=== PATIENT | male | born 1930 | race Caucasian/White ===

== ENCOUNTER 2017-12-04 16:47 | Inpatient (IN) | payer MEDICARE ==
--- NOTE | 2017-12-04 17:33 | RAD ---
RADIOGRAPH LEFT FOOT THREE VIEWS: HISTORY: An 87-year-old male with erythema of the second toe. Rule out osteomyelitis. COMPARISON: None. FINDINGS: There is no periostitis, permeative lesion, osteolytic lesion, osteoblastic lesion, or fracture invol ving the second proximal, middle, or third phalanges. There is moderate DJD of the first MTP without hallux valgus. There is pes planus. Atherosclerotic calcification of the posterior tibial and the dorsalis pedis arteries. Mild to moderate DJD at the joints of the mid foot. There is a broad-based exostosis protruding from the medial aspect of the head of the second middle phalanx. IMPRESSION: 1. No plain radiographic evidence of osteomyelitis. 2. 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 3. Pes planus. 4. Atherosclerotic disease. POS: SUMAN
[2017-12-04 17:34] LABS: #Basophils 0.1 thou/uL (0.0-0.2); #Eosinphils 0.1 thou/uL (0.0-0.7); #Lymphocytes 1.4 thou/uL (1.20-3.40); #Monocytes 0.8 thou/uL (0.11-0.59); #Neutrophils 6.8 thou/uL (1.40-6.50); %Basophils 1.6 % (0.0-1.0); %Eosinophils 0.9 % (0.0-10.0); %Lymphocytes 14.8 % (21.0-51.0); %Monocytes 8.5 % (0.0-10.0); %Neutrophils 74.3 % (42.0-75.0); Hemoglobin 14.9 g/dL (14.0-18.0); Mean Corpuscular Hemoglobin 31.6 pg (27.0-31.0); Mean Corpuscular Volume 87.7 fL (78.0-98.0); Mean Platelet Volume 6.3 fL (7.4-10.4); Platelet Count 246 thou/uL (130-400); RBC Distribution Width 11.4 % (11.5-14.5); Red Blood Cell (RBC) Count 4.74 mill/uL (4.70-6.10); White Blood Cell (WBC) Count 9.1 thou/uL (4.8-10.8)
[2017-12-04 17:49] LABS: ALT (SGPT) 13 U/L (8-55); AST (SGOT) 17 U/L (5-34); Albumin 3.8 g/dL (3.4-4.8); Alkaline Phosphatase 71 U/L (40-150); Anion Gap 14 mmol/L (10-20); BUN (Urea Nitrogen) 21 mg/dL (8.4-25.7); Bilirubin, Total 0.3 mg/dL (0.2-1.2); Calc. Creatinine Clearance 0 mL/min (70-130); Calcium 9.4 mg/dL (7.8-10.44); Carbon Dioxide 27 mmol/L (23-31); Chloride 98 mmol/L (98-107); Estimated GFR-MDRD 34; Globulin 3.3 g/dL (2.4-3.5); Glucose 136 mg/dL (83-110); Potassium 4.6 mmol/L (3.5-5.1); Protein, Total 7.1 g/dL (5.8-8.1); Sodium 134 mmol/L (136-145)
[2017-12-04] MEDS ORDERED: Sodium Chloride 0.9% 100 ML ONE (18:26)
[2017-12-04] MEDS ORDERED: cefTRIAXone\\ROCEPHIN 2 GM VIAL ONE (18:26)
[2017-12-04] MEDS ORDERED: Ondansetron HCl/PF 4 MG/2 ML Vial IVP PRN (20:10)
[2017-12-04] MEDS ORDERED: Acetaminophen 325 MG TAB PO PRN (20:10)
[2017-12-04] MEDS ORDERED: Dextrose 50% Abboject 50 ML SYRINGE SLOW IVP PRN (20:29)
[2017-12-04] MEDS ORDERED: HumaLOG 300 UNITS/3 ML VIAL SC PRN (20:29)
[2017-12-04] MEDS ORDERED: Dextrose 5% in Water 1,000 ML IV PRN (20:29)
[2017-12-04] MEDS ORDERED: VANCOMYCIN IVPB PRN (20:43)
[2017-12-04] MEDS ORDERED: Vancomycin HCl 1 GM in Premix Bag 1 BAG IVPB SCH (21:00)
[2017-12-04] MEDS ORDERED: Vancomycin HCl 750 MG in Sodium Chloride 0.9% 250 ML 250 ML IVPB SCH (21:00)
[2017-12-04] MEDS: Sodium Chloride 0.9% 1,000 ML IV SCH (21:00)
[2017-12-04] MEDS: Heparin 5,000 UNITS/ML VIAL SC SCH (21:20)
--- NOTE | 2017-12-05 01:31 | HP ---
PRIMARY CARE PHYSICIAN: Leroy Lindo M.D. CODE STATUS: FULL CODE. TIME OF EVALUATION: 8:00 p.m. CHIEF COMPLAINT: Second left toe pain. HISTORY OF PRESENT ILLNESS: This is an 87 years old male patient with past medical history of Alzhei chase's, diabetes, diabetic neuropathy, came to the hospital after having severe second toe pain and hi s reported he had been taking antibiotics and also getting wound care for this wound and the sec ond toe, they have been unable to get it to heal. The patient has completed p.o. antibiotic cycle wi th no improvement. Today, he was complaining of severe pain at home and lesion is also painful durin g the examination, might have more . REVIEW OF SYSTEMS: Constitutional: No fever or chills, generalized weakness. Respiratory: No coug h, sputum production or shortness of breath. Cardiovascular: No chest pain or palpitations. Gastro intestinal: No nausea, no vomiting, diarrhea or abdominal pain. 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 Genitourinary: No burning with urination. Extremities: Left second toe pain wit h nonhealing wound. All other systems were reviewed and negative except for the findings mentioned a sabina. PAST MEDICAL HISTORY: As mentioned in the HPI. PAST SURGICAL HISTORY: No reported significant surgical history. PSYCHIATRIC HISTORY: History of Alzheimer's. SOCIAL HISTORY: No drugs. No alcohol. No smoking. Lives with . FAMILY HISTORY: Reviewed and noncontributory to the current presentation. KNOWN ALLERGIES: PENICILLIN. REPORTED MEDICATIONS: Reviewed and updated. PHYSICAL EXAMINATION: VITAL SIGNS: On presentation, blood pressure 141/68 with a heart rate of 81, respiratory rate was 22 , temperature 98.2, pain was 0/10, oxygen saturation 94% on room air. GENERAL APPEARANCE: The patient is alert and oriented, not in any acute distress. HEENT: Eyes: Normal conjunctiva. Moist oral mucosa. Anicteric. NECK: No JVD. RESPIRATORY: Bilateral air entry. No rales, no wheezing. Symmetric expansion. CARDIOVASCULAR: Normal rate, regular rhythm. No murmurs, no gallop, no edema. ABDOMEN: Soft, normal bowel sounds. MUSCULOSKELETAL: Baseline range of motion and strength. No tenderness except for second left toe nunez s a healing ulcer with redness extending to the upper part of the foot. SKIN: Warm and intact. No pallor, no rash, no redness, chronic atrophic changes appropriate for age . Positive findings were reported in musculoskeletal. Peripheral pulses are present. Capillary ref ill seems to be intact. NEUROLOGIC: Baseline sensory. No evidence of any new focal weakness. Baseline speech. The patient has underlying dementia. Cranial nerves seem to be intact. PSYCHIATRIC: The patient is in good mood, no anxiety, oriented, suboptimal judgement. X-ray of the foot was reviewed, there is no plain radiographic evidence of osteomyelitis. Moderate o steoarthrosis of the first metatarsophalangeal joint atherosclerotic disease. LABORATORY DATA: Labs were reviewed. The patient has white count of 9.1, hemoglobin 14.9, MCV 87, p latelet count 246. Chemistry: Sodium 134, potassium 4.6, chloride 98, carbon dioxide 27, anion gap 14, BUN 31, creatinine 1.89, in previous admission in July of this year was 1.14. As per whole dayan rd review, GFR 34, glucose 136. Lactic acid was normal. C-reactive protein 1.62 and LFTs were orlin l. ASSESSMENT AND PLAN: The patient will be placed in the hospital with following medical problems: 1. Left second toe cellulitis. The patient has a nonhealing wound, has been going on for weeks, rec eiving wound care and Bactrim p.o. as an outpatient, did not work, well controlled. We will consult Wound Care. Per the patient on IV antibiotics, we will monitor cultures, and adjust the treatment as needed. X-ray not showing signs of osteomyelitis. 2. Uncontrolled diabetes with hyperglycemia. Placed the patient on sliding scale for optimal contro l. 3. Underlying dementia, we will monitor the patient. We will give supportive care. 4. Acute kidney injury, creatinine is elevated more than 0.3 mg per deciliter from previous admissio ns in July, we will hydrate gently, we will monitor kidney function and adjust the treatment as need ed. 5. Deep venous thrombosis prophylaxis.
[2017-12-05 04:48] LABS: #Eosinphils 0.2 thou/uL (0.0-0.7); #Lymphocytes 1.4 thou/uL (1.20-3.40); #Monocytes 0.9 thou/uL (0.11-0.59); #Neutrophils 6.6 thou/uL (1.40-6.50); %Basophils 0.3 % (0.0-1.0); %Eosinophils 2.2 % (0.0-10.0); %Lymphocytes 14.9 % (21.0-51.0); %Monocytes 9.9 % (0.0-10.0); %Neutrophils 72.8 % (42.0-75.0); Hemoglobin 13.4 g/dL (14.0-18.0); Mean Corpuscular HGB CONC 34.2 g/dL (32.0-36.0); Mean Corpuscular Volume 96.5 fL (78.0-98.0); Mean Platelet Volume 6.2 fL (7.4-10.4); Platelet Count 230 thou/uL (130-400); RBC Distribution Width 12.2 % (11.5-14.5); Red Blood Cell (RBC) Count 4.07 mill/uL (4.70-6.10); White Blood Cell (WBC) Count 9.1 thou/uL (4.8-10.8)
[2017-12-05 04:51] LABS: Potassium 4.4 mmol/L (3.5-5.1); Sodium 133 mmol/L (136-145)
[2017-12-05 04:52] LABS: Anion Gap 15 mmol/L (10-20); BUN (Urea Nitrogen) 19 mg/dL (8.4-25.7); Calc. Creatinine Clearance 44 mL/min (70-130); Calcium 8.8 mg/dL (7.8-10.44); Carbon Dioxide 20 mmol/L (23-31); Chloride 102 mmol/L (98-107); Estimated GFR-MDRD 49; Glucose 97 mg/dL (83-110)
[2017-12-05] MEDS: Heparin 5,000 UNITS/ML VIAL SC SCH ×3 (08:53→20:15)
[2017-12-05] MEDS ORDERED: Prevnar 13-Val Conj/PF 0.5 ML SYRINGE IM ONE (09:00)
[2017-12-05] MEDS: Vancomycin HCl 1.25 GM in Sodium Chloride 0.9% 250 ML 250 ML IVPB SCH (10:54)
[2017-12-05] MEDS: cefTRIAXone\\ROCEPHIN 1 GM in Sodium Chloride 0.9% 100 ML IVPB SCH (17:40)
--- NOTE | 2017-12-05 18:01 | PRG ---
DATE OF SERVICE: 12/05/2017 SUBJECTIVE: The patient reports he is feeling better, has less pain. I talked to wound care nurse krzysztof calhoun felt the patient was still very tender in his toe as he was attempting to dress it. He has no oth er complaints either. OBJECTIVE: VITAL SIGNS: Temperature 97.3, pulse 64, respirations 20, O2 sat 91%-100% on room air, BP 128/59. GENERAL APPEARANCE: Age appropriate male in no distress. He is awake, alert, conversant. CARDIOVASCULAR: Heart regular rate and rhythm without murmurs. LUNGS: Clear. ABDOMEN: Soft, nontender. EXTREMITIES: The left second toe has an eschar at the medial proximal aspect with some generalized e rythema. No drainage. IMPRESSION AND PLAN: 1. Cellulitis of the left second toe. This has been somewhat chronic; however, the patient had sudd en increase of pain in this toe. Subsequently, he presented to the hospital. He had pain management and x-ray of the foot which did not reveal evidence of osteomyelitis. He was converted from his ora l Bactrim to IV antibiotics. We will go ahead and obtain an MRI to definitively rule out osteomyelit is. 2. Diabetes mellitus. Continue with sliding scale. Blood sugars have been 110-141. 3. Dementia, stable. Patient is conversant. 4. Acute kidney injury. Creatinine is down from 1.89-1.39 which is still slightly above his baselin e, but much improved. His fluids will be discontinued at this point.
[2017-12-05] MEDS: Sodium Chloride 0.9% 1,000 ML IV SCH (18:05)
[2017-12-05] MEDS: Donepezil HCl 10 MG TAB PO SCH (20:15)
[2017-12-05] MEDS: Tamsulosin HCl 0.4 MG CAP PO SCH (20:15)
[2017-12-06] MEDS: Furosemide 40 MG TAB PO SCH (08:49)
[2017-12-06] MEDS: Heparin 5,000 UNITS/ML VIAL SC SCH ×3 (08:49→20:16)
[2017-12-06] MEDS: Aspirin 81 mg Enteric Coated Tablet PO SCH (08:49)
[2017-12-06] MEDS: Spironolactone 25 MG TAB PO SCH (08:50)
[2017-12-06] MEDS: metFORMIN XR 500 MG TAB PO SCH (08:50)
--- NOTE | 2017-12-06 10:13 | MRI ---
LEFT FOREFOOT MRI WITHOUT IV CONTRAST: HISTORY: An 87-year-old male with an open wound of the left second toe for several weeks with clinical concern for osteomyelitis. FINDINGS: There is some abnormal STIR and T2 hyperintensity in the middle phalanx of the second toe with some v larisa subtle T1 hypointensity. This appearance is consistent with at least significant nonspecific ost eitis and could possibly represent very early osteomyelitis. No evidence for associated significant soft tissue fluid collection or abscess. There is motion artifact on numerous sequences, markedly de grading image quality and lowering the sensitivity of this study. Arthrosis changes of the tarsometa tarsal joints. IMPRESSION: 1. Altered signal within the middle phalanx of the second toe, evidence for at least significant non specific osteitis and possibly very early or mild osteomyelitis, without evidence for a drainable abs cess or other significant acute process. 2. Degenerative and osteoarthrosis changes. POS: SUMAN
--- NOTE | 2017-12-06 11:11 | PRG ---
DATE OF SERVICE: 12/06/2017 SUBJECTIVE: The patient feels fine, has no specific complaints today. PHYSICAL EXAMINATION: VITAL SIGNS: Temperature 98.3, pulse 71, respirations 16, O2 sat 96% on room air, BP 104/57. GENERAL APPEARANCE: Age appropriate male in no distress. MUSCULOSKELETAL: Left second toe continues to have some erythema, although it actually does look a b it better presently. IMAGING DATA: MRI of the second toe shows some evidence of osteomyelitis in the middle phalanx which could be either osteitis or mild osteomyelitis, but no evidence of abscess. IMPRESSION AND PLAN: Left second toe infection with chronic ulcer and now MRI evidence of at least o steitis and likely osteomyelitis. Discussed with the patient and his . They would prefer to holger id surgery except as a last resort. PLAN: 1. We will consult ID to determine best medical regimen. Once that is done, we will likely need to get a PICC line in place and establish home health. 2. Diabetes mellitus, stable. Blood sugars are well controlled. 3. Mild chronic dementia, stable. The patient is pretty minimal to go with whatever plan we chose. 4. Acute kidney injury, resolved.
[2017-12-06] MEDS: Furosemide 20 MG TAB PO SCH (11:21)
[2017-12-06] MEDS: Vancomycin HCl 1.25 GM in Sodium Chloride 0.9% 250 ML 250 ML IVPB SCH (11:25)
[2017-12-06] MEDS: cefTRIAXone\\ROCEPHIN 1 GM in Sodium Chloride 0.9% 100 ML IVPB SCH (18:22)
[2017-12-06] MEDS: Donepezil HCl 10 MG TAB PO SCH (20:16)
[2017-12-06] MEDS: Tamsulosin HCl 0.4 MG CAP PO SCH (20:16)
--- NOTE | 2017-12-07 00:53 | CON ---
DATE OF CONSULTATION: 12/06/2017 REASON FOR CONSULTATION: Left foot ulcer with osteomyelitis. HISTORY OF PRESENT ILLNESS: An 87-year-old with history of dementia, type 2 diabetes, neuropathy, peripheral vascular disease, who developed second toe ulcer with marked pain. The patient has taken oral antimicrobial therapy without improvement. He was admitted because of worsening pain. No headaches, visual symptoms, sore throat, odynophagia, dysphagia, no cough or sputum production or chest pain, no abdominal pain, diarrhea, symptoms. No other joint symptoms. PAST MEDICAL HISTORY: Dementia, type 2 diabetes, neuropathy, peripheral vascular disease. SOCIAL HISTORY: Never smoker. . FAMILY HISTORY: Noncontributory. ALLERGIES: PENICILLIN. CURRENT MEDICATIONS: Aspirin, Ecotrin, ceftriaxone, donepezil, glucagon, insulin, vancomycin. PHYSICAL EXAMINATION: VITAL SIGNS: Temperature normal. Blood pressure 115/58, pulse 78, respirations 18, O2 sat 96%. SKIN: Shows around 0.5 cm ulcer medial aspect second toe proximal phalanx skin. Ulcer has a dark scab covering the base pretty much 100% of the base. There is some erythema around the margin. No bone is exposed. No lymphadenopathy. HEENT: Ocular movements are conjugate. Oral cavity not remarkable. NECK: Supple. LUNGS: Symmetric clear breath sounds. HEART: S1, S2 with a soft aortic murmur. Regular rate. ABDOMEN: Soft, not distended or tender. No ascites. No bladder distention. EXTREMITIES: No other joint inflammatory activity. I could not feel any dorsalis pedis or posterior tibialis. Popliteals are 2+ right and left side. Cap refill somewhat delayed. Patient is able to move extremities with no focal weakness. NEUROLOGIC: He knows he is in the hospital, knows his , but could not tell me the date. Has poor recollection of the sequence of events. LABORATORY DATA: Showed a white cell count of 9.1, hemoglobin 14, platelets 246. Sodium 134, creatinine 1.89 and 1.39. Liver profile normal. Albumin 3.8. Two sets of blood cultures, no growth at 48 hours. Foot x-ray with no evidence of osteolysis lower extremity MRI with altered signal in the middle phalanx of the second toe, evidence of early or mild osteomyelitis. ASSESSMENT: Type 2 diabetes, peripheral vascular disease and chronic ulcer medial aspect of the second toe left foot, now with evidence of radiological findings suggestive of osteomyelitis in the setting of peripheral vascular disease. DISCUSSION: Patient will need vascular study, I believe that the antimicrobial treatment would be unlikely to lead to resolution of the process. I would advise amputation if the vascular study is adequate for the surgical procedure. If the vascular study is abnormal, then we will have to consider revascularization. I think long-term antimicrobial therapy would not be effective and the patient himself is not interested in that solution. RADHA
[2017-12-07] MEDS: Furosemide 40 MG TAB PO SCH (08:59)
[2017-12-07] MEDS: Aspirin 81 mg Enteric Coated Tablet PO SCH (09:00)
[2017-12-07] MEDS: Heparin 5,000 UNITS/ML VIAL SC SCH ×3 (09:00→20:54)
[2017-12-07] MEDS: Spironolactone 25 MG TAB PO SCH (09:00)
--- NOTE | 2017-12-07 09:28 | PDOC.PN ---
- Subjective Encounter Start Date: 12/07/17 Encounter Start Time: 09:26 No complaints. Still has some pain with the dressing change. - Objective Resuscitation Status: Resuscitation Status DNR:Do Not Resuscitate Vital Signs & Weight: Vital Signs (12 hours) Temp Pulse Resp BP Pulse Ox 12/07/17 08:55 97.6 F 84 20 105/58 L 96 Weight Admit Weight 174 lb 9.6 oz Weight 168 lb 4.8 oz I&O: 12/06/17 12/07/17 12/08/17 06:59 06:59 06:59 Intake Total 2083 1200 Output Total 650 200 Balance 1433 1000 Result Diagrams: 12/05/17 03:19 12/05/17 03:19 Additional Labs: Accuchecks 12/07/17 12/06/17 12/06/17 05:42 19:46 16:49 POC Glucose 136 H 166 H 145 H 12/06/17 11:34 POC Glucose 138 H Phys Exam - Physical Examination Constitutional: NAD Respiratory: no wheezing, no rales, no rhonchi Cardiovascular: RRR, no significant murmur, no rub Gastrointestinal: soft, non-tender, no distention, positive bowel sounds LLE with cellulitic changes of second toe with chronic wound at proximal, medial aspect. PT/DP pulses not palpable. Psychiatric: normal affect Dx/Plan (1) Osteomyelitis of toe of left foot Code(s): M86.9 - OSTEOMYELITIS, UNSPECIFIED Status: Acute Comment: Appreciate ID consult. Abx not a good option. Vascular studies ordered. Will consult surg. (2) Diabetes mellitus Code(s): E11.9 - TYPE 2 DIABETES MELLITUS WITHOUT COMPLICATIONS Status: Acute Comment: Well controlled. (3) Dementia Code(s): F03.90 - UNSPECIFIED DEMENTIA WITHOUT BEHAVIORAL DISTURBANCE Status: Acute Comment: Stable (4) Acute on chronic renal insufficiency Code(s): N28.9 - DISORDER OF KIDNEY AND URETER, UNSPECIFIED; N18.9 - CHRONIC KIDNEY DISEASE, UNSPECIFIED Status: Acute Comment: Creatinine much improved. Recheck. - Plan * As above.
[2017-12-07 10:25] LABS: Anion Gap 15 mmol/L (10-20); BUN (Urea Nitrogen) 17 mg/dL (8.4-25.7); Calc. Creatinine Clearance 38 mL/min (70-130); Calcium 9.2 mg/dL (7.8-10.44); Carbon Dioxide 26 mmol/L (23-31); Chloride 98 mmol/L (98-107); Estimated GFR-MDRD 43; Glucose 197 mg/dL (83-110); Potassium 4.1 mmol/L (3.5-5.1); Sodium 135 mmol/L (136-145); Vancomycin, Trough 13.2 ug/mL
[2017-12-07] MEDS: metFORMIN XR 500 MG TAB PO SCH (11:36)
[2017-12-07] MEDS: Vancomycin HCl 1.5 GM in Sodium Chloride 0.9% 250 ML 300 ML IVPB SCH (11:37)
[2017-12-07] MEDS: Furosemide 20 MG TAB PO SCH (11:40)
[2017-12-07 14:10] VITALS: BMI 24.8
--- NOTE | 2017-12-07 14:34 | ULT ---
ARTERIAL DUPLEX SONOGRAM LEFT LOWER EXTREMITY: History: Vascular disease. Chronic ulceration. FINDINGS: Good color and spectral doppler flow. Triphasic waveform within the common femoral and superficial fe moral artery. Biphasic wave flow within the deep femoral and popliteal artery. Monophasic flow within the anterior tibial, posterior tibial and dorsalis pedis arteries. No abnormally elevated peak systo lic velocities. IMPRESSION: 1. Good arterial flow within the left lower extremity. Dampened pulsatility distally suggests small v essel disease. POS: SUMAN
--- NOTE | 2017-12-07 17:04 | HP ---
HISTORY OF PRESENT ILLNESS: An 87-year-old male, admitted, lives at home. Ambulatory unassisted, we ars mostly just socks during the day, rarely puts on a shoe. He has had problems with the left secon d toe for several months, treated with antibiotics intermittently and wound care without healing. He is admitted to this hospitalization and plain x-rays and MRI are equivocal for osteomyelitis of the mid phalanx, left second toe. Dr. Christian has seen him. He has ulceration on the medial aspect of the left second toe at the level of the mid phalanx. This appears to be superficial and tendons were no t exposed. He has palpable femoral, popliteal, dorsalis pedis pulse. Vascular studies have been obt ained, results pending. Discussion with the is of the opinion that the patient has exhausted lo maria conservative care and they wish to proceed with amputation of left second toe. We will plan that through the proximal phalanx and I think that we can close that wound. Risk of nonhealing future in fection had been discussed and they wish to proceed with amputation. ALLERGIES: PENICILLIN. TOBACCO: None for more than 25 years. ALCOHOL: None. MEDICATIONS: Spironolactone, Protonix, furosemide, aspirin, Flomax, donepezil, metformin, Namenda. PAST MEDICAL HISTORY: Diabetes, dementia, remote history of tobacco abuse. PAST SURGICAL HISTORY: None significant. REVIEW OF SYSTEMS: Not possible. FAMILY HISTORY: Noncontributory. 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 PHYSICAL EXAMINATION: VITAL SIGNS: 5 feet 9 inches, 168 pounds, 24 BMI, 97.6, 74, 122/59. LUNGS: Clear to auscultation. CARDIAC: Regular rate and rhythm without murmur or gallop. ABDOMEN: Soft, nontender. EXTREMITIES: The patient's legs are thin. He has palpable femoral, popliteal, dorsalis pedis pulse, left. He has chronic venous stasis changes. He has an ulceration on his left second toe medially, punctate mid phalanx. There is some mild redness and chronic inflammatory changes, but no active inf ection and it appears to be superficial. ASSESSMENT AND PLAN: 1. Wound left second toe. Amputation to the proximal phalanxes discussed above. Risk of nonhealing infection, reoperation, more proximal amputation discussed and they agreed. 2. Dementia. 3. Diabetes mellitus.
[2017-12-07] MEDS: cefTRIAXone\\ROCEPHIN 1 GM in Sodium Chloride 0.9% 100 ML IVPB SCH (17:23)
[2017-12-07] MEDS: Vancomycin HCl 1.25 GM in Sodium Chloride 0.9% 250 ML 250 ML IVPB SCH (17:27)
[2017-12-07] MEDS: Lactated Ringer's 1,000 ML IV SCH (18:44)
[2017-12-07] MEDS: Tamsulosin HCl 0.4 MG CAP PO SCH (20:39)
[2017-12-07] MEDS: Donepezil HCl 10 MG TAB PO SCH (20:40)
[2017-12-08] MEDS: Lactated Ringer's 1,000 ML IV SCH (04:35)
--- NOTE | 2017-12-08 07:34 | EKG ---
Test Reason : Blood Pressure : / mmHG Vent. Rate : 073 BPM Atrial Rate : 073 BPM P-R Int : 218 ms QRS Dur : 088 ms QT Int : 402 ms P-R-T Axes : 027 -19 031 degrees QTc Int : 442 ms Sinus rhythm with 1st degree A-V block Otherwise normal ECG When compared with ECG of 24-AUG-2011 07:32, TN interval has increased Confirmed by DR. Leila FRIEND ([id number]) on 12/08/2017 7:34:11 AM Referred By: ROGE Confirmed By:DR. Leila FRIEND
[2017-12-08] MEDS: Aspirin 81 mg Enteric Coated Tablet PO SCH (09:05)
[2017-12-08] MEDS: Furosemide 40 MG TAB PO SCH (09:06)
[2017-12-08] MEDS: Heparin 5,000 UNITS/ML VIAL SC SCH ×2 (09:06→15:47)
[2017-12-08] MEDS: Spironolactone 25 MG TAB PO SCH (09:07)
[2017-12-08] MEDS ORDERED: Acetaminophen 500 MG TAB PO PRN (11:33)
[2017-12-08] MEDS ORDERED: traMADol HCl 50 MG TAB PO PRN (11:33)
[2017-12-08] MEDS ORDERED: Bacitracin Zinc Ointment 30 gm TUBE ONE (11:33)
[2017-12-08] MEDS ORDERED: Fentanyl 100 MCG/2 ML VIAL ONE (11:38)
[2017-12-08] MEDS: Furosemide 20 MG TAB PO SCH (12:00)
[2017-12-08] MEDS ORDERED: Lidocaine 2% 10 ML INJ ONE (12:15)
[2017-12-08] MEDS ORDERED: Bupivacaine HCl 0.5%/Epinephrine 1:200,000/PF 30 ml Vial ONE (12:15)
[2017-12-08] MEDS ORDERED: Ondansetron HCl/PF 4 MG/2 ML Vial IVP PRN (12:46)
[2017-12-08] MEDS ORDERED: Promethazine HCl 25 MG/ML VIAL IM PRN (12:46)
[2017-12-08] MEDS ORDERED: Promethazine HCl 25 MG/ML VIAL SLOW IVP PRN (12:46)
[2017-12-08] MEDS: Vancomycin HCl 1.5 GM in Sodium Chloride 0.9% 250 ML 300 ML IVPB SCH (13:08)
[2017-12-08] MEDS ORDERED: Ciprofloxacin 500 MG TAB PO SCH ×2 (13:15→20:00)
[2017-12-08] MEDS ORDERED: Sulfameth/Trimethoprim DS 800-160mg TAB PO SCH ×2 (13:15→21:00)
[2017-12-08 16:10] VITALS: BP 128/62; TEMP 97.7
--- NOTE | 2017-12-08 16:55 | OP ---
DATE OF PROCEDURE: 12/08/2017 PREOPERATIVE DIAGNOSES: Diabetic ulceration of left second toe with intact blood supply, palpable pe norma pulses, dementia, diabetes. POSTOPERATIVE DIAGNOSES: Diabetic ulceration of left second toe with intact blood supply, palpable p edal pulses, dementia, diabetes. PROCEDURE: Amputation of left second toe through the proximal phalanx with primary closure. Good bl ood supply noted. SURGEON: Dr. Melvin Alexander ANESTHESIA: TIVA, local digital block 0.5% Marcaine with epinephrine, 30 mL, mixed with 2% Xylocaine , 10 mL, 5 mL mixture used. PROCEDURE IN DETAIL: Patient is taken to the operating room where under intravenous sedation, left l ower extremity was prepared with ChloraPrep, draped in routine fashion. Amputation of left second to e created performed by making a fish mouth type incision through the skin and subcutaneous tissue, tr ansecting the mid proximal phalanx with a bone cutter, resected proximally with rongeur. Wound irrig ated. Hemostasis gained with the cautery. Excellent blood supply noted. Good hemostasis noted. Galvan bcutaneous tissues approximated with 4-0 Monocryl and skin with 4-0 Prolene. Patient tolerated the p rocedure well. Antibiotic ointment, Telfa sterile dressings applied.
--- NOTE | 2017-12-09 14:40 | DIS ---
DATE OF ADMISSION: 12/06/2017 DATE OF DISCHARGE: 12/08/2017 DISCHARGE DIAGNOSIS: Osteomyelitis of the left second toe. PROCEDURE: Left toe amputation by Dr. Alexander. BRIEF HISTORY: The patient is an 87-year-old male with a history of diabetes, who has a chronic infe cted left second toe with cellulitis and an ulcer on the medial proximal aspect. The patient develop ed sudden worsening of pain in that toe and subsequently presented to the hospital. HOSPITAL COURSE: The patient initially had a white count of 9, had a BUN of 31, creatinine of 1.89. Lactic acid was normal. CRP was 162. The toe appeared to be in its chronic state of inflammation w ith the above-mentioned ulceration. The patient had an x-ray, which was negative for osteomyelitis. Dr. Christian was consulted and an MRI was obtained. The MRI did show evidence of osteomyelitis and Dr. Christian felt the patient would not resolve with IV antibiotics. He ordered lower extremity ultrasound , which showed adequate perfusion. Dr. Alexander subsequently saw the patient and took the patient for amputation on the day of discharge. Postoperatively, the patient was doing extremely well, had no si gnificant pain. PHYSICAL EXAMINATION: VITAL SIGNS: His temperature was 97.7, pulse 63, respirations 18, O2 saturation 98% on room air, blo od pressure was 127/59. GENERAL: The patient was awake and alert. HEART: Regular rate and rhythm. LUNGS: Clear. ABDOMEN: Benign. EXTREMITIES: Left foot has a postop dressing with absent left second toe. DISPOSITION: The patient is discharged to home. DISCHARGE MEDICATIONS: He will continue with his usual home medications including Aldactone 50 mg q. a.m., Protonix 40 mg q. day, Lasix 40 mg q.a.m. and 20 mg q.p.m., aspirin 81 mg q.a.m., tamsulosin 0. 4 mg at bedtime, donepezil 10 mg at bedtime, metformin 500 mg q. day, Namenda 10 mg b.i.d., Tylenol p .r.n. and he will have a prescription for tramadol 50 mg q.6 hours p.r.n. DISCHARGE INSTRUCTIONS: He will have home health visit him tomorrow. They will return on Monday to perform a dressing change. Subsequent to that, the patient is simply to wash the wound with soap and water and keep a small bandage. He is to follow up with Dr. Alexander in 2 weeks. He is also encourag ed to follow up with Dr. Lindo at next convenient appointment time. He will continue with a diabeti c diet. His activity level is ad-abner try to minimize weightbearing on the left foot until heal ing. DISCHARGE DIAGNOSES: 1. Cellulitis of the left second toe. 2. Osteomyelitis, left second toe. 3. Diabetes mellitus. 4. Dementia. 5. Acute on chronic renal insufficiency, resolved.
== END 2017-12-08 16:53 | disposition home health service (06) | DRG 617 ==
LOC: SCSER 16:47 → 2SW 19:40 → OBSVTOIN 12-06 14:24 → ONC 12-06 18:47
PROVIDERS: ADMIT Internal Medicine Infectious Disease; ATTEND Internal Medicine Infectious Disease
PROC: 3E0234Z Introduction of Serum, Toxoid and Vaccine into Muscle, Percutaneous Approach (ICD-10-PCS; 2017-12-05)
PROC: 0Y6S0Z1 Detachment at Left 2nd Toe, High, Open Approach (ICD-10-PCS; principal; 2017-12-08)
DX: E11.621 Type 2 diabetes mellitus with foot ulcer (principal); M86.172 Other acute osteomyelitis, left ankle and foot; L97.526 Non-pressure chronic ulcer of other part of left foot with bone involvement without evidence of necrosis; N17.9 Acute kidney failure, unspecified; E11.69 Type 2 diabetes mellitus with other specified complication; Z88.0 Allergy status to penicillin; Z79.4 Long term (current) use of insulin; Z87.891 Personal history of nicotine dependence; G30.9 Alzheimer's disease, unspecified; F02.80 Dementia in other diseases classified elsewhere, unspecified severity, without behavioral disturbance, psychotic disturbance, mood disturbance, and anxiety; E11.40 Type 2 diabetes mellitus with diabetic neuropathy, unspecified; E11.65 Type 2 diabetes mellitus with hyperglycemia; E86.0 Dehydration; L03.032 Cellulitis of left toe; E11.51 Type 2 diabetes mellitus with diabetic peripheral angiopathy without gangrene; Z79.82 Long term (current) use of aspirin; Z66 Do not resuscitate; Z23 Encounter for immunization
CPT/HCPCS: 36415; 36416; 80048; 80053; 80202; 83605; 85025; 85652; 86140; 87040; 90471; 90670; 93005; 93010; 93923; 96374; A4216; G0009; J0670; J0696; J1644; J3010; J3370; J7050

== ENCOUNTER 2018-02-03 07:46 | Emergency (ER) | payer MEDICARE ==
[2018-02-03 08:19] LABS: #Basophils 0.1 thou/uL (0.0-0.2); #Eosinphils 0.1 thou/uL (0.0-0.7); #Monocytes 0.9 thou/uL (0.11-0.59); #Neutrophils 9.9 thou/uL (1.40-6.50); %Basophils 1.2 % (0.0-1.0); %Eosinophils 0.5 % (0.0-10.0); %Lymphocytes 8.2 % (21.0-51.0); %Monocytes 7.8 % (0.0-10.0); %Neutrophils 82.3 % (42.0-75.0); Hemoglobin 15.2 g/dL (14.0-18.0); Mean Corpuscular HGB CONC 33.7 g/dL (32.0-36.0); Mean Corpuscular Volume 92.1 fL (78.0-98.0); Mean Platelet Volume 7.4 fL (7.4-10.4); Platelet Count 197 thou/uL (130-400); RBC Distribution Width 12.1 % (11.5-14.5); Red Blood Cell (RBC) Count 4.88 mill/uL (4.70-6.10)
--- NOTE | 2018-02-03 11:01 | RAD ---
LEFT FOOT 3 VIEWS: HISTORY: Left foot pain. Second toe left foot amputated 2 months ago. FINDINGS: There has been amputation of the 2nd toe at the level of the base of the proximal phalanx. I do not see any definite signs that would suggest osteomyelitis. There appears to be a soft tissue ulcer adj acent to the 5th metatarsal head. No underlying bony abnormality in this region. Vascular calcifica tions are seen. Arthritic changes of the 1st metatarsophalangeal joint and tarsal bone regions are n oted as well as ankle. There are also calcaneal spurs present. IMPRESSION: No acute findings. POS: DAJA
== END 2018-02-03 09:11 | disposition home or self-care (01) ==
LOC: SCSER 07:46
DX: Z48.89 Encounter for other specified surgical aftercare (principal); G30.9 Alzheimer's disease, unspecified; F02.80 Dementia in other diseases classified elsewhere, unspecified severity, without behavioral disturbance, psychotic disturbance, mood disturbance, and anxiety; Z87.891 Personal history of nicotine dependence
CPT/HCPCS: 36415; 85025; 86140; 99283

== ENCOUNTER 2018-02-04 11:41 | Emergency (ER) | payer MEDICARE, OTHER ==
--- NOTE | 2018-02-04 13:44 | RAD ---
PA AND LATERAL VIEWS CHEST: HISTORY: Cough. FINDINGS/IMPRESSION: Comparison is made with the exam of 04/23/2017 and 10/23/2014. The heart size is borderline. The aorta is tortuous. There is evidence of old granulomatous disease and chronic parenchymal changes are again seen. There are small bilateral pleural effusions. No lo bar consolidation or pneumothoraces are seen. POS: [facility]
== END 2018-02-04 12:47 | disposition home or self-care (01) ==
LOC: SCSER 11:41
DX: J06.9 Acute upper respiratory infection, unspecified (principal); G30.9 Alzheimer's disease, unspecified; F02.80 Dementia in other diseases classified elsewhere, unspecified severity, without behavioral disturbance, psychotic disturbance, mood disturbance, and anxiety; E11.9 Type 2 diabetes mellitus without complications; Z87.891 Personal history of nicotine dependence; Z79.899 Other long term (current) drug therapy; Z79.82 Long term (current) use of aspirin; Z79.84 Long term (current) use of oral hypoglycemic drugs
CPT/HCPCS: 71046